=== PATIENT | female | born 1960 | race Caucasian/White ===

== ENCOUNTER → 2018-10-06 | Day surgery (SDC) | payer OTHER ==
[~2018-10-06] MED LIST: ACIPHEX20 MG PO; GLUCAGON FOR INJ 1 MG VIAL ONE; HYOSCYAMINE 0.125 MG TAB ONE; LISINOPRIL10 MG PO; METFORMIN HCL500 MG PO; PANTOPRAZOLE SO40 MG PO; PROPOFOL IV EMULSION 10 MG/ML 50 ML VIAL ONE; SIMVASTATIN20 MG PO; VITAMIN B PO; VITAMIN D32000 UNIT PO
--- OUTSIDE RECORDS SUMMARY | 2018-10-06 07:12 | XMS REPORT | Clinical Summary ---
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 Last Filed Vital Signs Not on file Plan of Treatment Health Maintenance Due Date Last Done Comments BREAST CANCER SCREENING 2008 COLONOSCOPY SCREENING 2008 SHINGLES VACCINES (#1) 2008 INFLUENZA VACCINE 10/23/2018 Results Not on fileafter 10/05/2017 Insurance Type Payer Benefit Subscriber ID Effective Phone Address Plan / Dates Group HMO AETNA AETNA xxxxxxxxxx 1997-P HMO,POS,EP resent O, [facility] Advance Directives Patient has advance care planning documents on file. For more information, ashwini godfrey contact: Raj Charles [address] [place] [phone]
[2018-10-06 11:00] VITALS: BP 124/66
[2018-10-06 15:10] LABS: WBC,FECAL (FECAL LACTOFERRIN) NEGATIVE (NEGATIVE)
[2018-10-06 15:11] LABS: C DIFFICILE TOXIN A&B AMP PROB NEGATIVE (NEGATIVE)
--- NOTE | 2018-10-06 15:25 | Operative Report ---
DATE OF PROCEDURE: 10/06/2018 SURGEON: Twin Pascual MD PROCEDURE: Colonoscopy and polypectomy with biopsies. INDICATIONS FOR COLONOSCOPY: Surveillance colonoscopy, personal history of colon polyps, and chronic diarrhea. MEDICATIONS: The patient was done under MAC, please see anesthesiologist's note. PROCEDURE IN DETAIL: With the patient in left lateral decubitus position, a flexible fiberoptic Olympus colonoscope was inserted into the rectum with ease and advanced all the way to the cecum. Mucosa overlying the cecum grossly appeared to be within normal limits. Of note, the prep was suboptimal with retained stools in the colon. The ileocecal valve was intubated and the scope was advanced into the terminal ileum. Biopsies were obtained. The scope was then withdrawn back into the colon. It was then withdrawn slowly. One polyp was snared from the ascending colon. Whatever was visualized in the transverse colon grossly appeared to be within normal limits. Mild inflammatory changes were noted in the left colon, random biopsies were obtained. One polyp was snared from the descending colon. Six polyps were hot biopsied from the sigmoid colon. One polypectomy site was hemoclipped. Similar inflammatory findings were noted in the rectum. Biopsies were obtained. The scope was then retroflexed into the distal rectum and small internal hemorrhoids were noted, none of which was actively bleeding. The scope was then straightened out, it was subsequently withdrawn after securing an adequate stool specimen that was sent for the appropriate stool studies. The patient tolerated the procedure well. IMPRESSION: 1. Suboptimal prep. 2. Ascending colon polyp, snared. 3. Descending colon polyp, snared. 4. Mild patchy left-sided colitis. 5. Sigmoid polyps x6, hot biopsied, one polypectomy site hemoclipped. 6. Proctitis, mild, biopsied. 7. Internal hemorrhoids, none actively bleeding. PLAN: Follow up histology. Follow up stool studies. Start Bentyl 10 mg one p.o. t.i.d. Due to the suboptimal prep, the patient will probably benefit from having a followup colonoscopy in 1 year. A total of 8 polyps were removed. Twin Pascual MD [place]/MODL /[id number] cc: Gualberto Lopez DO
== END | disposition home or self-care (01) ==
LOC: OR 07:01
PROVIDERS: ATTEND Internal Medicine Gastroenterology
DX: Z12.11 Encounter for screening for malignant neoplasm of colon (principal); D12.2 Benign neoplasm of ascending colon; D12.4 Benign neoplasm of descending colon; D12.5 Benign neoplasm of sigmoid colon; Z86.010 Personal history of colon polyps; K29.70 Gastritis, unspecified, without bleeding; R19.7 Diarrhea, unspecified; I10 Essential (primary) hypertension; E11.9 Type 2 diabetes mellitus without complications; Z79.84 Long term (current) use of oral hypoglycemic drugs; Z01.810 Encounter for preprocedural cardiovascular examination; K51.50 Left sided colitis without complications; K62.89 Other specified diseases of anus and rectum; K64.8 Other hemorrhoids; Z91.19 Patient's noncompliance with other medical treatment and regimen
CPT/HCPCS: 36415; 45384; 45385; 82948; 83630; 83993; 87045; 87177; 87328; 87493; 93005; J1610; J2704; 45378; 45380

== ENCOUNTER → 2018-12-31 | Day surgery (SDC) | payer OTHER ==
[2018-12-29 10:45] LABS: BASOPHILS # (AUTO) 0.1 (0.0-0.1); BASOPHILS % 0.8 % (0.0-1.0); EOSINOPHILS # (AUTO) 0.3 (0.0-0.4); EOSINOPHILS % 3.7 % (0.0-6.0); HEMATOCRIT 39.9 % (34.2-44.1); HEMOGLOBIN 13.7 g/dL (12.0-16.0); LYMPHOCYTES % 42.6 % (18.0-39.1); MEAN CORPUSCULAR HEMOGLOBIN 29.7 pg (28-32); MEAN CORPUSCULAR HGB CONC 34.3 g/dL (31-35); MEAN CORPUSCULAR VOLUME 86.4 fL (81-99); MONOCYTES # (AUTO) 0.6 (0.2-0.8); MONOCYTES % 8.4 % (4.4-11.3); NEUTROPHILS # (AUTO) 3.1 (2.1-6.9); NEUTROPHILS % 44.2 % (38.7-80.0); PLATELET COUNT 164 x10e3/uL (140-360); RED BLOOD COUNT 4.62 x10e6/uL (3.6-5.1)
[2018-12-29 10:51] LABS: INR 0.94; PROTHROMBIN TIME 13.1 seconds (11.9-14.5)
[2018-12-29 10:58] LABS: ALBUMIN 3.7 g/dL (3.5-5.0); ALBUMIN/GLOBULIN RATIO 1.2 (0.8-2.0); ANION GAP 11.6 mmol/L (8-16); CALCIUM 10.2 mg/dL (8.4-10.2); CREATININE, SERUM 1.38 mg/dL (0.57-1.11); POTASSIUM 4.6 mmol/L (3.5-5.1)
--- NOTE | 2018-12-29 13:23 | NUR ---
Dr. Girard notified of abnormal lab values: creatinine 1.[address] Girard stated he will hydrate with fluids on the day of procedure.
[~2018-12-31] VITALS: Ht 167.6 cm; Wt 108.9 kg
[2018-12-31] VITALS (8 sets, daily range): BP systolic 92–126; BP diastolic 47–77
[~2018-12-31] MED LIST changes: +ASPIR-LOW81 MG PO; +BYSTOLIC10 MG PO; +FENTANYL CITRATE/PF 100MCG/2 ML INJ ONE; -GLUCAGON FOR INJ 1 MG VIAL ONE; +HEPARIN SOD (PORCINE) 1000 UNIT/ML 30ML ONE; -HYOSCYAMINE 0.125 MG TAB ONE; +IOPAMIDOL 370 MG/ML 200 ML INFUS..BTL INJ ONE; +LIDOCAINE HCL 2% LOCAL 20 ML VIAL ONE; +MIDAZOLAM HCL 2 MG/2 ML VIAL ONE; +MILK THISTLE175 M2 PO; +NITROGLYCERIN/D5W 200 MCG/ML 250 ML ONE; +ONDANSETRON HCL INJ 2MG/ML 2ML 2 MG/ML VIAL IV ONE; +ONDANSETRON HCL INJ 2MG/ML 2ML 2 MG/ML VIAL ONE; -PROPOFOL IV EMULSION 10 MG/ML 50 ML VIAL ONE; +SODIUM CHLORIDE 0.9% 1000ML 1,000 ML ONE; +VERAPAMIL HCL 2.5 MG/ML 2 ML VIAL ONE; +VITAMIN B12 PO
--- NOTE | 2018-12-31 09:06 | NUR ---
0924 bedside report received from ARCELIA Devlin. Received nauseated Rn injecting Zofran to left iv. Other ly back to baseline orientation. Alert oriented and appropriate, PERRLA, respirations even and unlabored to room air. Pulses x4 extremities equal and strong. Pedal pulses PT/DP 4. Cap fill brisk < 3 sec. Rt tr band No gross issues pain pallor pressure or dysrhythmia in sinus vasu.O to reduce air in band at 9:30. Ok dc home at 11:00am. Skin warm and dry integrity appears D/I. IV 20g to left hand, presents healthy w/o s/s of infiltration or complaint. Abdomen soft and supple. pt offered toileting, denies need to urinate or defecate. No personal affects with patient. Family [place] at bedside. .Pt and family verbalizes understanding of POC. Currently w/o complaint of pain or need. Po intake held,resting after Zofran. gisela/rn
--- NOTE | 2018-12-31 09:30 | NUR ---
0930 RADIAL Compression removal: Initial Cuff volume 12 cc 0930am -2cc Removed No hematoma/bleeding noted with normal neurovascular function. 0945am -3 cc Removed No hematoma/ bleeding noted with normal neurovascular function. 1000am -5 cc Removed No hematoma/bleeding noted with normal neurovascular function. Air removal completed. Stasis achieved sterile 2x2,Tegaderm, Coban dressing No hematoma, bleeding noted with normal neurovascular function. Wrist splint in place. Pt instructed on POC. Ds/Rn
--- NOTE | 2018-12-31 11:00 | NUR ---
1100 Pt meets DC criteria. Rt TR band site assessed for s/s of complication and presence of hematoma. Skin warm, dry, no discolor, and pulses present. IV removed from left . Distal tip appears intact. VS WNL. Pt denies pain, sob, or need at this time. Family at [place] at bedside. Additional dose Zofran 4mg ivp . Repeat ekg done and reviewed by MD Dr Girard spoke with patent.Review of discharge paperwork and follow up instructions. verbalized understanding. ds/rn -
--- NOTE | 2018-12-31 15:02 | Operative Report ---
DATE OF PROCEDURE: 12/31/2018 SURGEON: Sanjay Girard MD INDICATION FOR PROCEDURE: Chest pain, positive stress test. PROCEDURES PERFORMED: 1. Coronary angiography. 2. Left heart catheterization. PROCEDURE DETAILS: The patient was brought to the cardiac catheterization laboratory in the fasting state. Right wrist was prepped and draped in sterile fashion. A 6-English Slender sheath was inserted in right radial artery without difficulty. Coronary angiography and left heart catheterization were performed using [place] radial catheter. Multiple orthogonal views were taken of each coronary artery. All catheters were exchanged over a wire. There were no immediate complications. Access site was closed using a TR band device. The patient tolerated the procedure well. SIGNIFICANT FINDINGS: 1. No significant CAD. 2. Tortuous LAD. 3. Left ventricular end-diastolic pressure of 18. RECOMMENDATIONS: 1. Continue optimal medical therapy and risk factor control. 2. Follow up in clinic 2 weeks post procedure. MD ROMA SmithP/MODL /[id number]
== END | disposition home or self-care (01) ==
LOC: CATH LAB 06:27
PROVIDERS: ATTEND Internal Medicine
DX: I25.118 Atherosclerotic heart disease of native coronary artery with other forms of angina pectoris (principal); E11.9 Type 2 diabetes mellitus without complications; I10 Essential (primary) hypertension; Z83.3 Family history of diabetes mellitus; Z82.49 Family history of ischemic heart disease and other diseases of the circulatory system; Z79.84 Long term (current) use of oral hypoglycemic drugs; E78.5 Hyperlipidemia, unspecified; Z87.891 Personal history of nicotine dependence; I48.0 Paroxysmal atrial fibrillation; I73.9 Peripheral vascular disease, unspecified; Z01.812 Encounter for preprocedural laboratory examination
CPT/HCPCS: 36415; 80053; 85025; 85610; 93005; 93458; C1769; C1887; J1644; J2001; J2250; J2405; J3010; J7030; Q9967

== ENCOUNTER 2019-02-16 07:54 | Outpatient (RCR) | payer OTHER ==
[~2019-02-16 07:54] MED LIST changes: -FENTANYL CITRATE/PF 100MCG/2 ML INJ ONE; -HEPARIN SOD (PORCINE) 1000 UNIT/ML 30ML ONE; -IOPAMIDOL 370 MG/ML 200 ML INFUS..BTL INJ ONE; -LIDOCAINE HCL 2% LOCAL 20 ML VIAL ONE; -MIDAZOLAM HCL 2 MG/2 ML VIAL ONE; -NITROGLYCERIN/D5W 200 MCG/ML 250 ML ONE; -ONDANSETRON HCL INJ 2MG/ML 2ML 2 MG/ML VIAL IV ONE; -ONDANSETRON HCL INJ 2MG/ML 2ML 2 MG/ML VIAL ONE; -SODIUM CHLORIDE 0.9% 1000ML 1,000 ML ONE; -VERAPAMIL HCL 2.5 MG/ML 2 ML VIAL ONE
== END 2019-02-21 ==
LOC: PT 07:54
PROVIDERS: ATTEND Specialist
DX: M70.62 Trochanteric bursitis, left hip (principal); M43.16 Spondylolisthesis, lumbar region; M54.5 Low back pain; M25.552 Pain in left hip; M25.652 Stiffness of left hip, not elsewhere classified; M25.651 Stiffness of right hip, not elsewhere classified

== ENCOUNTER → 2021-11-08 | Outpatient (CLI) | payer OTHER | LOC: CARD 08:46 | PROVIDERS: ATTEND Family Medicine | DX: E11.9 Type 2 diabetes mellitus without complications (principal); I70.0 Atherosclerosis of aorta; E78.2 Mixed hyperlipidemia | CPT/HCPCS: 93880 ==

== ENCOUNTER → 2022-07-05 | Outpatient (CLI) | payer OTHER | LOC: CT 08:52 | PROVIDERS: ATTEND Family Medicine | DX: R06.02 Shortness of breath (principal); J98.59 Other diseases of mediastinum, not elsewhere classified | CPT/HCPCS: 71250 ==

== ENCOUNTER → 2025-01-05 | Day surgery (SDC) | payer MEDICARE ==
[2024-12-30 09:56] LABS: BASOPHILS % 1.0 % (0.0-1.0); EOSINOPHILS % 2.1 % (0.0-6.0); LYMPHOCYTES % 33.7 % (18.0-39.1); MONOCYTES % 9.3 % (4.4-11.3); NEUTROPHILS % 53.6 % (38.7-80.0); RED CELL DISTRIBUTION WIDTH 13.9 % (11.7-14.4)
[2024-12-30 10:19] LABS: EST GLOMERULAR FILTRATION RATE 24.0 ML/MIN (>=60)
[~2025-01-05] MED LIST changes: +ACETAMINOPHEN 1000 MG/100 ML 100 ML IV ONE; +ALENDRONATE SOD10 MG PO; +AMIODARONE HCL100 MG PO; +FAMOTIDINE 20 MG/2 ML VIAL IV ONE; +FOLIC ACID0.4 MG PO; +FUROSEMIDE40 MG PO; +JARDIANCE10 MG PO; +LIDOCAINE HCL 2% LOCAL INJ 5 ML SDV VIAL INJ ONE; +LOSARTAN POTASS50 MG PO; +METOCLOPRAMIDE HCL 10 MG/2ML VIAL ONE; +METOPROLOL SUCC25 MG PO; +ONDANSETRON HCL INJ 2MG/ML 2ML 2 MG/ML VIAL ONE; +OZEMPIC2 MG/0.75 SC; +PROPOFOL IV EMULSION 10 MG/ML 20 ML VIAL ONE; +XARELTO20 MG PO
[2025-01-05] MEDS: LACTATED RINGER'S 1,000 ML ONE (09:09)
[2025-01-05 10:43] VITALS: TEMP 98.1
[2025-01-05] MEDS: HYDROCODONE/APAP 7.5MG-325MG 1 EA TAB ONE (11:20)
[2025-01-05 11:50] VITALS: BP 129/61; PULSE 64; RESP 16; O2SAT 97
== END | disposition home or self-care (01) ==
LOC: OR 08:10
PROVIDERS: ATTEND Specialist
DX: M65.342 Trigger finger, left ring finger (principal); I10 Essential (primary) hypertension; I48.91 Unspecified atrial fibrillation; E78.5 Hyperlipidemia, unspecified; E11.9 Type 2 diabetes mellitus without complications; E66.812 Obesity, class 2; Z87.891 Personal history of nicotine dependence; Z79.85 Long-term (current) use of injectable non-insulin antidiabetic drugs; Z79.83 Long term (current) use of bisphosphonates; Z79.01 Long term (current) use of anticoagulants; Z79.899 Other long term (current) drug therapy; Z68.36 Body mass index [BMI] 36.0-36.9, adult; Z01.810 Encounter for preprocedural cardiovascular examination; Z01.812 Encounter for preprocedural laboratory examination
CPT/HCPCS: 26055; 36415 ×2; 71046; 80048; 82948; 85025; 93005; J0131; J0690; J1308; J2003; J2405; J2704; J2765; J7121